=== PATIENT | female | born 1960 | race Caucasian/White ===

== ENCOUNTER → 2024-05-22 | Outpatient (CLI) | payer MEDICARE, BC, SELFPAY ==
--- NOTE | 2024-05-22 | XR_ITS ---
Examination: PA lateral chest 2 views TECHNIQUE: Upright PA lateral chest 2 views Exam date and time: May 22, 2024: 46 hours INDICATIONS: COPD, chronic shortness of breath, CT chest July 04, 2023 spiculated pulmonary mass with central cavitation in the right lower lobe FINDINGS: Significant hyperexpansion No pneumonia or pulmonary edema Prominent osteopenia IMPRESSION: No pulmonary mass right lower lobe currently depicted Consider repeat CT chest without intravenous contrast follow-up
== END | disposition home or self-care (01) ==
PROVIDERS: PCP Family Medicine; Referring Provider Specialist; Visit Provider Specialist
DX: R06.02 Shortness of breath (principal)
CPT/HCPCS: 71046